=== PATIENT | female | born 1980 | race Caucasian/White ===

== ENCOUNTER 2016-12-06 15:29 | Emergency (ER) | payer MEDICAID, OTHER, SELFPAY ==
[~2016-12-06] VITALS: Ht 154.9 cm; Wt 96.9 kg
[2016-12-06 16:00] LABS: HEMOGLOBIN 14.2 g/dL (11.7-16.4)
[2016-12-06 16:13] LABS: ASPARTATE AMINO TRANSFERASE 16 U/L (15-37); BLOOD UREA NITROGEN 10 mg/dL (7-18)
[2016-12-06 16:19] LABS: IS PT STATUS REG ER OR PRE ER? YES
[2016-12-06] MEDS ORDERED: LORazepam 0.5MG TABLET PO ONE (16:30)
[2016-12-06] MEDS ORDERED: PLEASE ENTER ALLERGIES MC SCH ×2 (17:00)
[2016-12-06] MEDS ORDERED: CEFTRIAXONE 1,000 MG IM ONE (17:00)
[2016-12-06] MEDS ORDERED: CEFTRIAXONE 1,000 MG ONE (17:36)
[2016-12-06] MEDS ORDERED: AZITHROMYCIN 500 MG TABLET ONE (17:36)
[2016-12-06] MEDS ORDERED: LORazepam 0.5MG TABLET ONE (17:36)
[2016-12-06 17:45] VITALS: BP 143/80
[2016-12-07] MEDS ORDERED: AZITHROMYCIN 500 MG TABLET PO SCH (09:00)
== END 2016-12-06 17:48 | disposition home or self-care (01) ==
LOC: ED 16:28
DX: A59.01 Trichomonal vulvovaginitis (principal); R07.9 Chest pain, unspecified
CPT/HCPCS: 36415; 71010; 80053; 84484; 84703; 85025; 87210; 87491; 87591; 87808; 93005; 96372; 99285; J0696